=== PATIENT | female | born 1975 | race American Indian/Alaskan Native ===

== ENCOUNTER 2016-11-24 14:35 | Outpatient (CLI) | payer MEDICAID ==
--- NOTE | 2016-11-25 09:57 | Mammography Report ---
Bilateral mammogram: No previous studies available. CAD study utilized. Findings: Heterogeneous breast parenchyma bilaterally. No mass or microcalcification. Benign axilla. Impression: Benign findings. Annual followup recommended. BI-RADS CATEGORY: 2 = Benign ACR BI-RADS MAMMOGRAPHIC CODES: 0 = Needs additional imaging evaluation; 1 = Negative; 2 = Benign; 3 = Probably benign; 4 = Suspicious; 5 = Malignant; 6 = Known biopsy-proven malignancy COMMENT: 1. Dense breast tissue, i.e., adenosis, fibrocystic changes, etc., may obscure an underlying neoplasm. 2. Approximately 10% of cancers are not detected with mammography. 3. A negative mammography report should not delay biopsy if a clinically suspicious mass is present. COMMENT: Patient follow-up letters are generated in [employer].
== END 2016-11-24 14:36 | disposition home or self-care (01) ==
LOC: MAMMO 14:35
PROVIDERS: ATTEND Internal Medicine
DX: Z12.31 Encounter for screening mammogram for malignant neoplasm of breast (principal)
CPT/HCPCS: 77067; G0202

== ENCOUNTER 2019-07-02 12:20 | Observation (INO) | payer MEDICAID, OTHER ==
[2019-07-02] MEDS ORDERED: methylPREDNISolone Sod Suc 125 MG in SODIUM CHLORIDE 0.9% 100 ML IV ONE (13:19)
[2019-07-02] MEDS ORDERED: MAGNESIUM SULFATE 2 GM/50 ML BAG IV ONE (13:19)
[2019-07-02] MEDS ORDERED: SODIUM CHLORIDE 0.9% 500 ML 500 ML IV ONE (13:19)
[2019-07-02] MEDS ORDERED: diphenhydrAMINE 50 MG/ML VIAL IV ONE (13:19)
[2019-07-02] MEDS ORDERED: METOCLOPRAMIDE 10 MG/2 ML INJ IV ONE (13:19)
[2019-07-02] MEDS ORDERED: LIDOCAINE (4%) 40 MG/ML TOPICAL SOLN 50 ML BOTTLE TP ONE (13:19)
--- NOTE | 2019-07-02 13:21 | Emergency Department Report ---
ED General Adult HPI - General Chief complaint: Chest Pain Stated complaint: CHEST PAIN/HEADACHE Time Seen by Provider: 07/02/19 12:47 Source: patient, EMS ( EMS documentation not available at time of chart dictation ), RN notes reviewed Mode of arrival: Ambulatory Limitations: Physical Limitation - History of Present Illness Initial comments: This is a 43-year-old female. This patient is not known to this provider previously. She states that she is not . She indicates she does not have a local primary care doctor. She does not have a formal diagnosis of migraines that she is aware of. During the entire history and physical, I am online merchandising specialist and escorted by Ms. Carolee Kirby The patient presents to the ER with multiple complaints. Her first complaint is headache. The headache is right-sided and throbbing. It started at 10:00 in the morning. It is not described as sudden or thunderclap in nature. It did not which maximal intensity within an hour. It is not the most intense headache of her life. She had a worse headache last month. This headache is associated binocular blurry vision, and subjective feeling of unsteady gait. The patient denies DVT and pulmonary embolism risk factors. She also describes central chest wall pain and breast pain. The pain is sharp and throbbing, and increases with palpation and decreases with rest. -: Gradual, Sudden Location: head, chest Radiation: other (headache radiates back and forth, to the forehead and left- sided temporal region) Severity scale (0 -10): 8 Quality: aching, other Consistency: other (patient reports headache mostly resolved. Chest wall pain increases with palpation. It decreases with rest.) - Related Data Home Medications Medication Instructions Recorded Confirmed Last Taken Vitamin C 1,000 mg PO DAILY 07/03/19 07/03/19 07/02/19 Previous Rx's Medication Instructions Recorded Last Taken Type Propranolol [Inderal] 40 mg PO BID #60 tablet 02/13/16 07/02/19 Rx Allergies Allergy/AdvReac Type Severity Reaction Status Date / Time No Known Allergies Allergy Verified 02/12/16 23:25 ED Review of Systems ROS: Stated complaint: CHEST PAIN/HEADACHE Other details as noted in HPI Constitutional: denies: fever Eyes: vision change. denies: eye pain, eye discharge ENT: denies: congestion Respiratory: denies: wheezing Cardiovascular: chest pain. denies: syncope Gastrointestinal: nausea. denies: vomiting Genitourinary: denies: dysuria Musculoskeletal: arthralgia, myalgia, other (patient also describes nontraumatic right-sided breast wall pain) Skin: denies: lesions Neurological: headache, weakness, abnormal gait. denies: numbness, paresthesias Psychiatric: anxiety Hematological/Lymphatic: denies: easy bleeding ED Past Medical Hx - Past Medical History Previous Medical History?: Yes Hx Hypertension: Yes Hx CVA: No Hx Heart Attack/AMI: No Hx Congestive Heart Failure: No Hx Diabetes: No Hx Deep Vein Thrombosis: No Hx Pulmonary Embolism: No Hx Liver Disease: No Hx Renal Disease: No Hx of Cancer: No Hx Sickle Cell Disease: No Hx Arthritis: No Hx Headaches / Migraines: Yes Hx Seizures: No Hx Kidney Stones: No Hx Psychiatric Treatment: No Hx Asthma: No Hx COPD: No Hx Tuberculosis: No Hx Dementia: No Hx HIV: No - Surgical History Past Surgical History?: No Hx Coronary Stent: No Hx Open Heart Surgery: No Hx Pacemaker: No Hx Internal Defibrillator: No Hx Cholecystectomy: No Hx Appendectomy: No Hx Breast Surgery: No - Social History Smoking Status: Never Smoker Substance Use Type: None - Medications Home Medications: Home Medications Medication Instructions Recorded Confirmed Last Taken Type Propranolol [Inderal] 40 mg PO BID #60 tablet 02/13/16 07/03/19 07/02/19 Rx Vitamin C 1,000 mg PO DAILY 07/03/19 07/03/19 07/02/19 History ED Physical Exam - General Limitations: No Limitations General appearance: alert, anxious, in distress, obese - Head Head exam: Present: atraumatic, normocephalic - Eye Eye exam: Present: normal appearance, PERRL, EOMI, other (visual acuity intact to finger counting, color perception, reading at a close distance). Absent: nystagmus - ENT ENT exam: Present: normal exam, normal orophraynx, mucous membranes moist, normal external ear exam - Neck Neck exam: Present: normal inspection, full ROM. Absent: tenderness, meningismus - Respiratory Respiratory exam: Present: normal lung sounds bilaterally, chest wall tenderness. Absent: respiratory distress - Cardiovascular Cardiovascular Exam: Present: regular rate, normal rhythm, normal heart sounds. Absent: systolic murmur, diastolic murmur, rubs, gallop - GI/Abdominal GI/Abdominal exam: Present: soft, normal bowel sounds. Absent: distended, tenderness, guarding, rebound, rigid, pulsatile mass - Extremities Exam Extremities exam: Present: normal inspection, full ROM, other (2+ pulses noted in the bilateral upper, lower extremities. There is no long bone tenderness. Musculoskeletal compartments are soft. The pelvis is stable.). Absent: pedal edema, joint swelling, calf tenderness - Back Exam Back exam: Present: normal inspection, full ROM. Absent: tenderness, CVA tender ness (R), CVA tenderness (L), paraspinal tenderness, vertebral tenderness - Neurological Exam Neurological exam: Present: alert, oriented X3, abnormal gait (patient walks with a broad-based unsteady gait), other (there is no facial droop. The tongue is midline. Extraocular movements are intact bilaterally. Patient speaking in full complete sentences. Shoulder shrug is intact bilaterally. Hearing is grossly intact bilaterally. Visual acuity intact to finger counting and color perception at a close distance. 5/5 strength 4 extremities. Sensation intact to light touch in 4 extremities.). Absent: motor sensory deficit - Psychiatric Psychiatric exam: Present: anxious - Skin Skin exam: Present: warm, dry, intact, normal color, other (there is no skin redness, pus or streaking. There is reproducible right-sided chest wall tenderness. There is no breast redness, pus or streaking. There is no breast induration or fluctuance. Tire Specialist by Carolee Kirby). Absent: rash ED Course Vital Signs 07/02/19 07/02/19 07/02/19 12:35 12:38 12:45 Temperature 98.2 F Pulse Rate 71 72 Respiratory 16 16 Rate Blood Pressure 170/101 170/101 Blood Pressure 170/101 [Right] O2 Sat by Pulse 96 98 96 Oximetry 07/02/19 07/02/19 07/02/19 13:01 13:07 13:15 Temperature Pulse Rate 80 74 Respiratory 26 H 18 12 Rate Blood Pressure 170/101 174/104 Blood Pressure [Right] O2 Sat by Pulse 87 100 Oximetry 07/02/19 07/02/19 07/02/19 13:30 13:45 14:07 Temperature Pulse Rate 72 70 92 H Respiratory 12 18 18 Rate Blood Pressure 160/105 160/105 174/104 Blood Pressure [Right] O2 Sat by Pulse 99 100 95 Oximetry 07/02/19 07/02/19 07/02/19 14:15 14:31 14:45 Temperature Pulse Rate 76 73 73 Respiratory 19 18 18 Rate Blood Pressure 174/104 174/104 174/104 Blood Pressure [Right] O2 Sat by Pulse 100 99 98 Oximetry 07/02/19 07/02/19 07/02/19 15:03 15:15 15:30 Temperature Pulse Rate Respiratory Rate Blood Pressure 160/105 160/105 165/97 Blood Pressure [Right] O2 Sat by Pulse 96 98 98 Oximetry 07/02/19 07/02/19 07/02/19 15:45 16:00 16:16 Temperature Pulse Rate Respiratory Rate Blood Pressure 165/97 153/96 153/96 Blood Pressure [Right] O2 Sat by Pulse 98 96 97 Oximetry 07/02/19 07/02/19 07/02/19 16:30 16:45 17:00 Temperature Pulse Rate Respiratory Rate Blood Pressure 153/96 169/102 Blood Pressure [Right] O2 Sat by Pulse 95 96 95 Oximetry 07/02/19 07/02/19 07/02/19 17:15 17:30 17:45 Temperature Pulse Rate Respiratory Rate Blood Pressure 169/102 160/99 160/99 Blood Pressure [Right] O2 Sat by Pulse 99 96 99 Oximetry 07/02/19 07/02/19 07/02/19 18:00 18:11 18:21 Temperature Pulse Rate Respiratory Rate Blood Pressure 164/108 169/102 169/102 Blood Pressure [Right] O2 Sat by Pulse 95 98 97 Oximetry 07/02/19 18:30 Temperature Pulse Rate Respiratory Rate Blood Pressure 163/119 Blood Pressure [Right] O2 Sat by Pulse 92 Oximetry - Reevaluation(s) Reevaluation #1: 07/02/19 13:56 Differential diagnosis, including not limited to: Migraine, complex migraine, partial seizure, stroke, transient ischemic attack, or carditis, myocarditis, acute coronary syndrome, costochondritis Assessment and plan: 43-year-old female with multiple complaints, including headache, resolved binocular blurry visual loss, feeling unsteady gait, demonstrated on exam, also with chest pain which is reproducible. She is not tachycardic, tachypneic or hypoxic, and she is low risk by well's criteria, as well as PERC negative Her EKG is morphologically abnormal, with nonspecific ST elevation, there may be some MO depression, this may be consistent with early pericarditis. Patient at low risk for major adverse cardiac event as per the heart score. However, she does not carry a formal diagnosis of migraine or complex migraine as per her history, and therefore, atypical presentation of stroke is on the differential diagnosis. At this point in time, a prior EKG is not available for comparison. Her exam is not suggestive of a large vessel occlusion, she was evaluated by stroke neurology, Dr. Ortiz, who agreed that patient was not a TPA candidate, and also agreed that patient did not require emergent endovascular imaging. Patient not especially hypertensive, has equal pulses in the upper and lower e xtremities, this is very unlikely to be aortic disease. Admission was recommended by the neurology service for further evaluation of neurologic symptoms. Screening laboratory studies, x-ray the chest are pending at this time. Her headache will be treated supportively and symptomatically. Reevaluation #2: 07/02/19 14:[address] Taco Cruz for inpatient evaluation and management sleeping comfortably at this time and in no acute distress ED Medical Decision Making - Lab Data Result diagrams: 07/02/19 13:44 07/02/19 13:44 Vital Signs 07/02/19 07/02/19 12:38 13:07 Temperature 98.2 F Pulse Rate 71 Respiratory 16 18 Rate Blood Pressure 170/101 Blood Pressure 170/101 [Right] O2 Sat by Pulse 98 100 Oximetry - EKG Data -: EKG Interpreted by [place] EKG shows normal: sinus rhythm Rate: normal - EKG Data When compared to previous EKG there are: previous EKG unavailable 07/02/19 13:58 No prior EKG is available for comparison. The EKG shows a sinus rhythm, 74 bpm, normal axis, the QTC is within normal limits, there is borderline high left ventricular voltage, nonspecific ST elevation, abnormality noted in aVF, V3, V4, V5 and V6. There may be some MO depression. The EKG is abnormal. There is no prior for comparison. It is not a STEMI. - Radiology Data Radiology results: pending, report reviewed, image reviewed Noncontrast CT scan of the brain is negative for acute disease. Critical care attestation.: If time is entered above; I have spent that time in minutes in the direct care of this critically ill patient, excluding procedure time. ED Disposition Clinical Impression: Chest pain Migraine Qualifiers: Migraine type: unspecified Disposition: OP ADMIT IP TO THIS HOSP Is pt being admited?: Yes Does the pt Need Aspirin: Yes Condition: Stable
--- NOTE | 2019-07-02 13:43 | Cat Scan Report ---
CT head/brain wo con INDICATION / CLINICAL INFORMATION: 43 years Female; MAIN: CODE STROKE CALL [phone]. TECHNIQUE: Routine CT head without contrast. All CT scans at this location are performed using CT dos e reduction for ALARA by means of automated exposure control. COMPARISON: None. FINDINGS: BRAIN / INTRACRANIAL CONTENTS: No acute hemorrhage, mass effect, midline shift, hydrocephalus, or acu te, large territorial infarct. No chronic infarct or atrophy appreciated. No significant white matter abnormality. CRANIOCERVICAL JUNCTION: No significant abnormality. ORBITS: No significant abnormality of visualized orbits. SINUSES / MASTOIDS: No significant abnormality of the visualized paranasal sinuses or mastoid air moose ls. ADDITIONAL FINDINGS: None. IMPRESSION: 1. No focal mass, hemorrhage, hydrocephalus, or acute, large territorial infarct. This exam was performed as part of a code stroke protocol. The exam was completed on 07/02/2019 12:33 PM. The exam was reviewed at 12:[address] Calderon was notified at 12:38 PM. Signer Name: Marvin Araya MD, III Signed: 07/02/2019 1:39 PM Workstation Name: [id number]
--- NOTE | 2019-07-02 13:50 | Emergency Department Report ---
ED General Adult HPI - General Chief complaint: Chest Pain Stated complaint: CHEST PAIN/HEADACHE Time Seen by Provider: 07/02/19 12:47 Source: EMS Mode of arrival: Ambulatory Limitations: No Limitations - History of Present Illness Initial comments: [facility] Date of Service: 07/02/2019 13:27:18 Impression: Migraine Comments: 43 year old female who presents with migraine headache with aura of blurred vision. Presentation likely more related to migraine rather than stroke. Mechanism of Stroke: Not Clear Metrics: Last Known Well: 07/01/2019 23:30:00 [employer] Notification Time: 07/02/2019 13:26:18 Arrival Time: 07/02/2019 12:20:00 Stamp Time: 07/02/2019 13:27:18 Time First Login Attempt: 07/02/2019 13:31:00 Video Start Time: 07/02/2019 13:31:00 Symptoms: Migraine NIHSS Start Assessment Time: 07/02/2019 13:35:00 Patient is not a candidate for tPA. Patient was not deemed candidate for tPA thrombolytics because of Last Well Known Above 4.5 Hours. Video End Time: 07/02/2019 13:40:00 CT head showed no acute hemorrhage or acute core infarct. Advanced imaging was not obtained as the presentation was not suggestive of Large Vessel Occlusive Disease. ER Physician notified of the decision on thrombolytics management on 07/02/2019 13:42:44 Our recommendations are outlined below. Recommendations: Activate Stroke Protocol Admission/Order Set Stroke/Telemetry Floor Neuro Checks Bedside Swallow Eval DVT Prophylaxis IV Fluids, Normal Saline Head of Bed Below 30 Degrees Euglycemia and Avoid Hyperthermia (PRN Acetaminophen) Antiplatelet Therapy Recommended Dysphaghia Screen: Swallow Evaluation, Bedside Disposition: Sign Out Sign Out: Discussed with Emergency Department Provider History of Present Illness: Patient was brought by EMS for symptoms of Migraine 43 year old female who presents with unilateral throbbing headache on the right side of her head with some sensitivity to light and sound. She did not have any focal weakness or numbness or difficulty speaking. She reported that this is similar to her previous migraines except that she had blurred vision and right breast pain. CT head showed no acute hemorrhage or acute core infarct. Examination: BP(170/101), Blood Glucose(93) 1A: Level of Consciousness - Alert; keenly responsive + 0 1B: Ask Month and Age - Both Questions Right + 0 1C: Blink Eyes & Squeeze Hands - Performs Both Tasks + 0 2: Test Horizontal Extraocular Movements - Normal + 0 3: Test Visual [place] - No Visual Loss + 0 4: Test Facial Palsy (Use Grimace if Obtunded) - Normal symmetry + 0 5A: Test Left Arm Motor Drift - No Drift for 10 Seconds + 0 5B: Test Right Arm Motor Drift - No Drift for 10 Seconds + 0 6A: Test Left Leg Motor Drift - No Drift for 5 Seconds + 0 6B: Test Right Leg Motor Drift - No Drift for 5 Seconds + 0 7: Test Limb Ataxia (FNF/Heel-[place]) - No Ataxia + 0 8: Test Sensation - Normal; No sensory loss + 0 9: Test Language/Aphasia - Normal; No aphasia + 0 10: Test Dysarthria - Normal + 0 11: Test Extinction/Inattention - No abnormality + 0 NIHSS Score: 0 Patient was informed the Neurology Consult would happen via TeleHealth consult by way of interactive audio and video telecommunications and consented to receiving care in this manner. Due to the immediate potential for life-threatening deterioration due to underlying acute neurologic illness, I spent 35 minutes providing critical care. This time includes time for face to face visit via telemedicine, review of medical records, imaging studies and discussion of findings with providers, the patient and/or family. Dr Haydee Chavez [facility] Case [id number] Severity scale (0 -10): 8 - Related Data Previous Rx's Medication Instructions Recorded Last Taken Type Famotidine [Pepcid] 20 mg PO BID #30 tablet 02/13/16 Unknown Rx HYDROcodone/APAP 5-325 [[place] 1 each PO Q6HR PRN #10 tablet 02/13/16 Unknown Rx 5/325] Omeprazole [PriLOSEC] 20 mg PO QDAY #14 capsule. 02/13/16 Unknown Rx Propranolol [Inderal] 40 mg PO BID #60 tablet 02/13/16 Unknown Rx Allergies Allergy/AdvReac Type Severity Reaction Status Date / Time No Known Allergies Allergy Verified 02/12/16 23:25 ED Review of Systems ROS: Stated complaint: CHEST PAIN/HEADACHE Other details as noted in HPI ED Past Medical Hx - Past Medical History Previous Medical History?: Yes Hx Hypertension: Yes Hx CVA: No Hx Heart Attack/AMI: No Hx Congestive Heart Failure: No Hx Diabetes: No Hx Deep Vein Thrombosis: No Hx Pulmonary Embolism: No Hx Liver Disease: No Hx Renal Disease: No Hx of Cancer: No Hx Sickle Cell Disease: No Hx Arthritis: No Hx Headaches / Migraines: Yes Hx Seizures: No Hx Kidney Stones: No Hx Psychiatric Treatment: No Hx Asthma: No Hx COPD: No Hx Tuberculosis: No Hx Dementia: No Hx HIV: No - Surgical History Past Surgical History?: No Hx Coronary Stent: No Hx Open Heart Surgery: No Hx Pacemaker: No Hx Internal Defibrillator: No Hx Cholecystectomy: No Hx Appendectomy: No Hx Breast Surgery: No - Social History Smoking Status: Never Smoker Substance Use Type: None - Medications Home Medications: Home Medications Medication Instructions Recorded Confirmed Last Taken Type Famotidine [Pepcid] 20 mg PO BID #30 tablet 02/13/16 Unknown Rx HYDROcodone/APAP 5-325 [[place] 1 each PO Q6HR PRN #10 tablet 02/13/16 Unknown Rx 5/325] Omeprazole [PriLOSEC] 20 mg PO QDAY #14 capsule. 02/13/16 Unknown Rx Propranolol [Inderal] 40 mg PO BID #60 tablet 02/13/16 Unknown Rx ED Physical Exam - General Limitations: No Limitations ED Course Vital Signs 07/02/19 07/02/19 12:38 13:07 Temperature 98.2 F Pulse Rate 71 Respiratory 16 18 Rate Blood Pressure 170/101 Blood Pressure 170/101 [Right] O2 Sat by Pulse 98 100 Oximetry Critical care attestation.: If time is entered above; I have spent that time in minutes in the direct care of this critically ill patient, excluding procedure time. ED Disposition Clinical Impression: Migraine Qualifiers: Migraine type: with aura Status migrainosus presence: without status migrainosus Intractability: not intractable Qualified Code(s): G43.109 - Migraine with aura, not intractable, without status migrainosus Disposition: DC-09 OP ADMIT IP TO THIS HOSP Is pt being admited?: Yes Does the pt Need Aspirin: No Condition: Stable
[2019-07-02] MEDS ORDERED: methylPREDNISolone Sod Succinate 125 MG/2 ML INJ ONE (13:57)
[2019-07-02] MEDS ORDERED: methylPREDNISolone Sod Succinate 125 MG/2 ML INJ IV ONE (14:00)
[2019-07-02 14:29] LABS: Mean Corpuscular HGB Conc 30 % (30-34); Mean Corpuscular Volume 87 fl (79-97); Platelet Count 322 K/mm3 (140-440); Red Blood Count 4.44 M/mm3 (3.65-5.03); Red Cell Distribution Width 18.2 % (13.2-15.2)
[2019-07-02 14:33] LABS: Hematocrit 38.6 % (30.3-42.9); Hemoglobin 11.4 gm/dl (10.1-14.3)
[2019-07-02 14:37] LABS: INR 1.01 (0.87-1.13)
[2019-07-02 14:37] LABS: Bilirubin,Urine NEG (Negative); Blood,Urine LG (Negative); Color,Urine Colorless (Yellow); Protein,Urine <15 mg/dL mg/dL (Negative); Urobilinogen,Urine < 2.0 mg/dL (<2.0); WBC,Urine < 1.0 /HPF (0.0-6.0)
[2019-07-02 14:38] LABS: Partial Thromboplastin Time 30.9 Sec. (24.2-36.6); Thrombin Time 15.4 Sec. (15.1-19.6)
[2019-07-02 14:40] LABS: Creatine Kinase MB 1.1 ng/mL (0.0-4.0)
[2019-07-02 14:41] LABS: BUN/Creatinine Ratio 23; Blood Urea Nitrogen 14 mg/dL (7-17); Calcium 9.9 mg/dL (8.4-10.2)
[2019-07-02 14:42] LABS: Alanine Aminotransferase 13 units/L (7-56); Albumin 4.4 g/dL (3.9-5); Hemolysis Index 15
[2019-07-02] MEDS ORDERED: ASPIRIN 81 MG TAB CHEW PO ONE (14:50)
--- NOTE | 2019-07-02 15:38 | History and Physical Report ---
History of Present Illness Chief complaint: My chest hurts, I have a headache History of present illness: 43 YO Female with Obesity, Migraine Headache, HTN, GERD presents to ED for evaluation. Pt states that she experienced a sudden onset of Right sided headache followed by blurred vision, feeling like she cannot walk straight. Pt states that pain in her head is 8/10, intense, constant, worsened with looking into a bright light, and has lasted over the past several hours. Pt also reports chest pain. Pt states that pain is 5/10, sharp, throbbing in nature, intermittent, lasted for several minutes, worsened with exertion, relieved with nitro tablet, as well as with rest. EMS notified, and upon arrival the patient was found to be in distress and transported to [facility]. Pt seen and evaluated in ED and found to have Angina, as well as symptoms consistent with Migraine Headache. Pt placed in observation status and admitted to medical floor. Pt denies fever, chills, palpitations, productive cough, skin rash, prolonged travel/immobility, unilateral leg swelling, calf pain, individual/family history of DVT/PE/Blee ding/Blood Clotting Disorders. Past History Past Medical History: other (see hpi) Past Surgical History: No surgical history, Other (reviewed) Social history: single. denies: smoking, alcohol abuse, prescription drug abuse Family history: diabetes, hypertension Medications and Allergies Allergies Allergy/AdvReac Type Severity Reaction Status Date / Time No Known Allergies Allergy Verified 02/12/16 23:25 Home Medications Medication Instructions Recorded Confirmed Last Taken Type Famotidine [Pepcid] 20 mg PO BID #30 tablet 02/13/16 Unknown Rx HYDROcodone/APAP 5-325 [Graff 1 each PO Q6HR PRN #10 tablet 02/13/16 Unknown Rx 5/325] Omeprazole [PriLOSEC] 20 mg PO QDAY #14 capsule. 02/13/16 Unknown Rx Propranolol [Inderal] 40 mg PO BID #60 tablet 02/13/16 Unknown Rx Review of Systems Constitutional: no weight loss, no weight gain, no fever, no chills Eyes: bilateral: blurred vision Ears, nose, mouth and throat: no ear pain, no ear discharge, no tinnitis, no decreased hearing, no nose pain Breasts: no change in shape, no swelling, no mass Cardiovascular: chest pain, no palpitations, no rapid/irregular heart beat, no edema Respiratory: no cough, no cough with sputum, no excessive sputum, no hemoptysis Gastrointestinal: no nausea, no vomiting, no diarrhea, no constipation Genitourinary Female: no pelvic pain, no flank pain, no menorrhagia, no dysuria, no urinary frequency Rectal: no pain, no incontinence, no bleeding Musculoskeletal: no neck stiffness, no neck pain, no shooting arm pain, no arm numbness/tingling, no low back pain, no shooting leg pain Integumentary: no rash, no pruritis, no redness, no sores, no wounds Neurological: headaches, migraines, no transient paralysis, no paralysis, no weakness, no parathesias, no numbness, no tingling, no seizures Psychiatric: no anxiety, no memory loss, no change in sleep habits, no sleep disturbances, no insomnia, no change in appetite, no change in libido Endocrine: no cold intolerance, no heat intolerance, no polyphagia, no polydipsia, no polyuria, no nocturia Hematologic/Lymphatic: no easy bruising, no easy bleeding, no lymphedema Allergic/Immunologic: no urticaria, no wheezing, no persistent infections, no anaphylaxis Exam - Constitutional Vitals: Temp Pulse Resp BP Pulse Ox 98.2 F 76 19 174/104 100 07/02/19 12:38 07/02/19 14:15 07/02/19 14:15 07/02/19 14:15 07/02/19 14:15 General appearance: Present: mild distress, obese - EENT Eyes: Present: PERRL ENT: hearing intact, clear oral mucosa - Neck Neck: Present: supple, normal ROM - Respiratory Respiratory effort: normal Respiratory: bilateral: CTA - Cardiovascular Heart Sounds: Present: S1 & S2. Absent: rub, click - Extremities Extremities: pulses symmetrical, No edema Peripheral Pulses: within normal limits - Abdominal General gastrointestinal: Present: soft, non-tender, non-distended, normal bowel sounds Female genitourinary: Present: normal - Integumentary Integumentary: Present: clear, warm, dry - Musculoskeletal Musculoskeletal: gait normal, strength equal bilaterally - Psychiatric Psychiatric: appropriate mood/affect, intact judgment & insight - Neurologic Neurologic: CNII-XII intact, moves all extremities Results - Labs CBC & Chem 7: 07/02/19 13:44 07/02/19 13:44 Labs: Abnormal lab results 07/02/19 07/02/19 07/02/19 Range/Units 13:44 13:44 13:44 MCH 26 L (28-32) pg RDW 18.2 H (13.2-15.2) % Carbon Dioxide 21 L (22-30) mmol/L Creatinine 0.6 L (0.7-1.2) mg/dL Urine pH (5.0-7.0) Salicylates 0.8 L (2.8-20.0) mg/dL Acetaminophen (10.0-30.0) ug/mL 07/02/19 07/02/19 Range/Units 13:44 14:18 MCH (28-32) pg RDW (13.2-15.2) % Carbon Dioxide (22-30) mmol/L Creatinine (0.7-1.2) mg/dL Urine pH 8.0 H (5.0-7.0) Salicylates (2.8-20.0) mg/dL Acetaminophen < 5.0 L (10.0-30.0) ug/mL Assessment and Plan - Patient Problems (1) Angina at rest Current Visit: Yes Status: Acute Plan to address problem: Admit to medical floor, serial cardiac enzymes, ekg, telemetry, Echo, PPI therapy, BNP, D dimer,morphine, supplemental oxygen, nitro, aspirin (2) Migraine headache Current Visit: Yes Status: Acute Qualifiers: Migraine type: unspecified Plan to address problem: Fioricet, pain control, supportive care. (3) Obesity (BMI 30.0-34.9) Current Visit: Yes Status: Acute Plan to address problem: Balanced diet, increased physical activity at discharge, supportive care. (4) HTN (hypertension) Current Visit: Yes Status: Acute Qualifiers: Hypertension type: essential hypertension Qualified Code(s): I10 - Essential (primary) hypertension Plan to address problem: monitor bp q shift, supportive care. (5) GERD (gastroesophageal reflux disease) Current Visit: Yes Status: Acute Qualifiers: Esophagitis presence: without esophagitis Qualified Code(s): K21.9 - Gastro -esophageal reflux disease without esophagitis Plan to address problem: PPI therapy, supportive care. (6) DVT prophylaxis Current Visit: Yes Status: Acute Plan to address problem: SCD to BLE while in bed,PT ambulatory
[2019-07-02] MEDS ORDERED: HYDROcodone/ACETAMINOPHEN 5-325 MG TAB PO PRN (15:39)
[2019-07-02] MEDS ORDERED: ACETAMINOPHEN 325 MG TAB PO PRN (15:40)
[2019-07-02] MEDS ORDERED: ONDANSETRON 4 MG/2 ML INJ IV PRN (15:40)
[2019-07-02] MEDS ORDERED: NITROGLYCERIN 0.4 MG TAB SUBL SL PRN (15:43)
[2019-07-02 15:44] LABS: Total Cells Counted 100
[2019-07-02 15:45] LABS: Eosinophils % (Manual) 0 % (0.0-4.3); Hypochromasia 1+
[2019-07-02 16:11] LABS: Chol/HDL Ratio 3.11 %
[2019-07-02 16:17] LABS: Free T4 (Free Thyroxine) 0.98 ng/dL (0.76-1.46)
--- NOTE | 2019-07-02 16:23 | XRay Report ---
CHEST 1 VIEW INDICATION / CLINICAL INFORMATION: chest wall pain upt. COMPARISON: None available. FINDINGS: SUPPORT DEVICES: None. HEART / MEDIASTINUM: No significant abnormality. LUNGS / PLEURA: No significant pulmonary or pleural abnormality.. No pneumothorax. ADDITIONAL FINDINGS: No significant additional findings. IMPRESSION: 1. No acute findings. Signer Name: Bird Rand MD Signed: 07/02/2019 4:18 PM Workstation Name: [id number]
[2019-07-02] MEDS ORDERED: BUTALB/ACETAMINOPHEN/CAFFEINE TAB PO PRN (17:44)
[2019-07-02] MEDS ORDERED: hydrALAZINE 20 MG/1 ML INJ IV ONE (20:56)
[2019-07-02] MEDS: PANTOPRAZOLE 40 MG TAB PO SCH (21:19)
[2019-07-02] MEDS ORDERED: FAMOTIDINE 20 MG TAB PO SCH (22:00)
[2019-07-02] MEDS: PROPRANOLOL 40 MG TAB PO SCH (22:40)
[2019-07-03] MEDS: PANTOPRAZOLE 40 MG TAB PO SCH (09:59)
[2019-07-03] MEDS: PROPRANOLOL 40 MG TAB PO SCH (09:59)
[2019-07-03] MEDS ORDERED: NON-FORMULARY EACH (Omeprazole [Prilosec] 20 MG) PO SCH (10:00)
[2019-07-03] MEDS ORDERED: PANTOPRAZOLE 20 MG TAB PO SCH (10:00)
--- NOTE | 2019-07-03 12:44 | Magnetic Resonance Report ---
MRI BRAIN WITHOUT CONTRAST INDICATION / CLINICAL INFORMATION: Headache, unsteady gait. TECHNIQUE: Multiplanar, multisequence MR images of the brain were obtained. COMPARISON: CT head dated 07/02/2018 FINDINGS: BRAIN / INTRACRANIAL CONTENTS: No acute ischemia, acute hemorrhage, mass effect, midline shift, or hy drocephalus. No chronic infarct or atrophy. No significant white matter abnormality. CRANIOCERVICAL JUNCTION: No significant abnormality. VASCULAR FLOW-VOIDS: No significant abnormality. ORBITS: No significant abnormality of visualized orbits. SINUSES / MASTOIDS: No significant abnormality of visualized sinuses and mastoid air cells. ADDITIONAL FINDINGS: None. IMPRESSION: Normal MR brain. MRA HEAD WITHOUT CONTRAST HISTORY: Headache, unsteady gait COMPARISON: None. TECHNIQUE: Routine MRA of the head is performed. 3-D/MIP reformats postprocessed. CONTRAST: None. FINDINGS: Intracranial vertebral arteries: No significant abnormality. Basilar artery: No significant abnormality. Posterior cerebral arteries: No significant abnormality. Intracranial internal carotid arteries: No significant abnormality. Anterior cerebral arteries: No significant abnormality. Middle cerebral arteries: No significant abnormality. Additional findings: None. IMPRESSION: Normal MRA head. Signer Name: Song Alexander Jr, MD Signed: 07/03/2019 12:39 PM Workstation Name: [id number]
--- NOTE | 2019-07-03 15:41 | Progress Note ---
Hospitalist Physical - Constitutional Vitals: Temp Pulse Resp BP Pulse Ox 98.0 F 67 18 158/92 98 07/03/19 06:12 07/03/19 09:59 07/03/19 06:12 07/03/19 09:59 07/03/19 06:12 General appearance: Present: mild distress, obese Results - Labs CBC & Chem 7: 07/02/19 13:44 07/02/19 13:44 Labs: Laboratory Last Values WBC 6.4 K/mm3 (4.5-11.0) 07/02/19 13:44 RBC 4.44 M/mm3 (3.65-5.03) 07/02/19 13:44 Hgb 11.4 gm/dl (10.1-14.3) 07/02/19 13:44 Hct 38.6 % (30.3-42.9) 07/02/19 13:44 MCV 87 fl (79-97) 07/02/19 13:44 MCH 26 pg (28-32) L 07/02/19 13:44 MCHC 30 % (30-34) 07/02/19 13:44 RDW 18.2 % (13.2-15.2) H 07/02/19 13:44 Plt Count 322 K/mm3 (140-440) 07/02/19 13:44 Lymph % (Auto) Animal Laboratory Technician 07/02/19 13:44 Johnson % (Auto) Animal Laboratory Technician 07/02/19 13:44 Eos % (Auto) Animal Laboratory Technician 07/02/19 13:44 Baso % (Auto) Animal Laboratory Technician 07/02/19 13:44 Lymph # Animal Laboratory Technician 07/02/19 13:44 Johnson # Animal Laboratory Technician 07/02/19 13:44 Eos # Animal Laboratory Technician 07/02/19 13:44 Baso # Animal Laboratory Technician 07/02/19 13:44 Add Manual Diff Complete 07/02/19 13:44 Total Counted 100 07/02/19 13:44 Seg Neutrophils % Animal Laboratory Technician 07/02/19 13:44 Seg Neuts % (Manual) 67.0 % (40.0-70.0) 07/02/19 13:44 Band Neutrophils % 0 % 07/02/19 13:44 Lymphocytes % (Manual) 22.0 % (13.4-35.0) 07/02/19 13:44 Reactive Lymphs % (Man) 0 % 07/02/19 13:44 Monocytes % (Manual) 10.0 % (0.0-7.3) H 07/02/19 13:44 Eosinophils % (Manual) 0 % (0.0-4.3) 07/02/19 13:44 Basophils % (Manual) 1.0 % (0.0-1.8) 07/02/19 13:44 Metamyelocytes % 0 % 07/02/19 13:44 Myelocytes % 0 % 07/02/19 13:44 Promyelocytes % 0 % 07/02/19 13:44 Blast Cells % 0 % 07/02/19 13:44 Nucleated RBC % Not Reportable 07/02/19 13:44 Seg Neutrophils # Animal Laboratory Technician 07/02/19 13:44 Seg Neutrophils # Man 4.3 K/mm3 (1.8-7.7) 07/02/19 13:44 Band Neutrophils # 0.0 K/mm3 07/02/19 13:44 Lymphocytes # (Manual) 1.4 K/mm3 (1.2-5.4) 07/02/19 13:44 Abs React Lymphs (Man) 0.0 K/mm3 07/02/19 13:44 Monocytes # (Manual) 0.6 K/mm3 (0.0-0.8) 07/02/19 13:44 Eosinophils # (Manual) 0.0 K/mm3 (0.0-0.4) 07/02/19 13:44 Basophils # (Manual) 0.1 K/mm3 (0.0-0.1) 07/02/19 13:44 Metamyelocytes # 0.0 K/mm3 07/02/19 13:44 Myelocytes # 0.0 K/mm3 07/02/19 13:44 Promyelocytes # 0.0 K/mm3 07/02/19 13:44 Blast Cells # 0.0 K/mm3 07/02/19 13:44 WBC Morphology Not Reportable 07/02/19 13:44 Hypersegmented Neuts Not Reportable 07/02/19 13:44 Hyposegmented Neuts Not Reportable 07/02/19 13:44 Hypogranular Neuts Not Reportable 07/02/19 13:44 Smudge Cells Not Reportable 07/02/19 13:44 Toxic Granulation Not Reportable 07/02/19 13:44 Toxic Vacuolation Not Reportable 07/02/19 13:44 Dohle Bodies Not Reportable 07/02/19 13:44 Pelger-Huet Anomaly Not Reportable 07/02/19 13:44 Uri Rods Not Reportable 07/02/19 13:44 Platelet Estimate Not Reportable 07/02/19 13:44 Clumped Platelets Not Reportable 07/02/19 13:44 Plt Clumps, EDTA Not Reportable 07/02/19 13:44 Large Platelets Not Reportable 07/02/19 13:44 Giant Platelets Not Reportable 07/02/19 13:44 Platelet Satelliting Not Reportable 07/02/19 13:44 Plt Morphology Comment Not Reportable 07/02/19 13:44 RBC Morphology Not Reportable 07/02/19 13:44 Dimorphic RBCs Not Reportable 07/02/19 13:44 Polychromasia Not Reportable 07/02/19 13:44 Hypochromasia 1+ 07/02/19 13:44 Poikilocytosis Not Reportable 07/02/19 13:44 Anisocytosis Not Reportable 07/02/19 13:44 Microcytosis Not Reportable 07/02/19 13:44 Macrocytosis Not Reportable 07/02/19 13:44 Spherocytes Not Reportable 07/02/19 13:44 Pappenheimer Bodies Not Reportable 07/02/19 13:44 Sickle Cells Not Reportable 07/02/19 13:44 Target Cells Not Reportable 07/02/19 13:44 Tear Drop Cells Not Reportable 07/02/19 13:44 Ovalocytes Not Reportable 07/02/19 13:44 Helmet Cells Not Reportable 07/02/19 13:44 [place]-Mutual Bodies Not Reportable 07/02/19 13:44 [place]iota Rings Not Reportable 07/02/19 13:44 [place] Cells Not Reportable 07/02/19 13:44 Bite Cells Not Reportable 07/02/19 13:44 Crenated Cell Not Reportable 07/02/19 13:44 Elliptocytes Not Reportable 07/02/19 13:44 Acanthocytes (Spur) Not Reportable 07/02/19 13:44 Rouleaux Not Reportable 07/02/19 13:44 Hemoglobin C Crystals Not Reportable 07/02/19 13:44 Schistocytes Not Reportable 07/02/19 13:44 Malaria parasites Not Reportable 07/02/19 13:44 Eduardo Bodies Not Reportable 07/02/19 13:44 Hem Pathologist Commnt No 07/02/19 13:44 PT 13.2 Sec. (12.2-14.9) 07/02/19 13:44 INR 1.01 (0.87-1.13) 07/02/19 13:44 APTT 30.9 Sec. (24.2-36.6) 07/02/19 13:44 Thrombin Time 15.4 Sec. (15.1-19.6) 07/02/19 13:44 D-Dimer 169.28 ng/mlDDU (0-234) 07/02/19 Unknown Sodium 141 mmol/L (137-145) 07/02/19 13:44 Potassium 4.1 mmol/L (3.6-5.0) 07/02/19 13:44 Chloride 101.9 mmol/L (98-107) 07/02/19 13:44 Carbon Dioxide 21 mmol/L (22-30) L 07/02/19 13:44 Anion Gap 22 mmol/L 07/02/19 13:44 BUN 14 mg/dL (7-17) 07/02/19 13:44 Creatinine 0.6 mg/dL (0.7-1.2) L 07/02/19 13:44 Estimated GFR > 60 ml/min 07/02/19 13:44 BUN/Creatinine Ratio 23 % 07/02/19 13:44 Glucose 82 mg/dL (65-100) 07/02/19 13:44 Calcium 9.9 mg/dL (8.4-10.2) 07/02/19 13:44 Magnesium 2.30 mg/dL (1.7-2.3) 07/02/19 13:44 Total Bilirubin 0.40 mg/dL (0.1-1.2) 07/02/19 13:44 AST 15 units/L (5-40) 07/02/19 13:44 ALT 13 units/L (7-56) 07/02/19 13:44 Alkaline Phosphatase 70 units/L (35-129) 07/02/19 13:44 Total Creatine Kinase 61 units/L (30-135) 07/02/19 13:44 CK-MB (CK-2) 1.1 ng/mL (0.0-4.0) 07/02/19 13:44 CK-MB (CK-2) Rel Index 1.8 (0-4) 07/02/19 13:44 Troponin T < 0.010 ng/mL (0.00-0.029) 07/02/19 21:01 NT-Pro-B Natriuret Pep 44.45 pg/mL (0-450) 07/02/19 Unknown Total Protein 7.7 g/dL (6.3-8.2) 07/02/19 13:44 Albumin 4.4 g/dL (3.9-5) 07/02/19 13:44 Albumin/Globulin Ratio 1.3 % 07/02/19 13:44 Triglycerides 69 mg/dL (2-149) 07/02/19 Unknown Cholesterol 168 mg/dL (50-199) 07/02/19 Unknown LDL Cholesterol Direct 107 mg/dL (50-130) 07/02/19 Unknown HDL Cholesterol 54 mg/dL (40-59) 07/02/19 Unknown Cholesterol/HDL Ratio 3.11 % 07/02/19 Unknown TSH 1.730 mlU/mL (0.270-4.200) 07/02/19 Unknown Free T4 0.98 ng/dL (0.76-1.46) 07/02/19 Unknown HCG, Quant 0.960 mIU/mL (0-4) 07/02/19 13:44 Urine Color Colorless (Yellow) 07/02/19 14:18 Urine Turbidity Clear (Clear) 07/02/19 14:18 Urine pH 8.0 (5.0-7.0) H 07/02/19 14:18 Ur Specific [place] 1.003 (1.003-1.030) 07/02/19 14:18 Urine Protein <15 mg/dl mg/dL (Negative) 07/02/19 14:18 Urine Glucose (UA) Neg mg/dL (Negative) 07/02/19 14:18 Urine Ketones Neg mg/dL (Negative) 07/02/19 14:18 Urine Blood Lg (Negative) 07/02/19 14:18 Urine Nitrite Neg (Negative) 07/02/19 14:18 Urine Bilirubin Neg (Negative) 07/02/19 14:18 Urine Urobilinogen < 2.0 mg/dL (<2.0) 07/02/19 14:18 Ur Leukocyte Esterase Neg (Negative) 07/02/19 14:18 Urine WBC (Auto) < 1.0 /HPF (0.0-6.0) 07/02/19 14:18 Urine RBC (Auto) 72.0 /HPF (0.0-6.0) 07/02/19 14:18 U Epithel Cells (Auto) 1.0 /HPF (0-13.0) 07/02/19 14:18 Salicylates 0.8 mg/dL (2.8-20.0) L 07/02/19 13:44 Acetaminophen < 5.0 ug/mL (10.0-30.0) L 07/02/19 13:44 Plasma/Serum Alcohol < 0.01 % (0-0.07) 07/02/19 13:44 Active Medications - Current Medications Current Medications: Generic Name Dose Route Start Last Admin Trade Name Freq PRN Reason Stop Dose Admin Acetaminophen 650 mg 07/02/19 15:40 Tylenol PO Q4H PRN Pain MILD(1-3)/Fever >100.5/ Acetaminophen/Butalbital/Caffeine 1 tab 07/02/19 17:44 Fioricet PO Q4H PRN Headache Acetaminophen/Hydrocodone Bitart 1 each 07/02/19 15:39 [place] 5/325 PO Q6HR PRN Pain, Moderate (4-6) Atorvastatin Calcium 40 mg 07/02/19 22:00 07/02/19 21:19 Lipitor PO 40 mg QHS ASHU Administration Nitroglycerin 0.4 mg 07/02/19 15:43 Nitrostat SL Q5M PRN Chest Pain Ondansetron HCl 4 mg 07/02/19 15:40 Zofran IV Q8H PRN Nausea And Vomiting Pantoprazole Sodium 40 mg 07/02/19 17:47 07/03/19 09:59 Protonix PO 40 mg BID ASHU Administration Propranolol HCl 40 mg 07/02/19 22:00 07/03/19 09:59 Inderal PO 40 mg BID ASHU Administration Sodium Chloride 10 ml 07/02/19 22:00 07/03/19 09:58 Sodium Chloride Flush Syringe 10 Ml IV 10 ml BID ASHU Administration Sodium Chloride 10 ml 07/02/19 15:40 Sodium Chloride Flush Syringe 10 Ml IV PRN PRN LINE FLUSH Sodium Chloride 10 ml 07/02/19 15:43 Sodium Chloride Flush Syringe 10 Ml IV PRN PRN LINE FLUSH
--- NOTE | 2019-07-03 17:13 | Discharge Summary ---
Providers - Providers Date of Admission: 07/02/19 15:40 Date of discharge: 07/03/19 Attending physician: TAHMINA MELENDREZ 07/02/19 Consult to Cardiac Rehabilitation [CONS] Routine Reason For Exam: Phase I 07/03/19 09:58 Consult to Physician [CONS] Routine Comment: Consulting Provider: LYNN CASTELLANOS Physician Instructions: Reason For Exam: headache, unsteady gait Primary care physician: BINGO MANAGER Hospitalization Condition: Fair Hospital course: patient is 43 YO Female with Obesity, Migraine Headache, HTN, GERD presents to ED for evaluation. Pt states that she experienced a sudden onset of Right sided headache followed by blurred vision, feeling like she cannot walk straight. Pt stated that pain in her head is 8/10, intense, constant, worsened with looking into a bright light, and has lasted over the several hours. Pt also reports chest pain. Pt states that pain is 5/10, sharp, throbbing in nature, intermittent, lasted for several minutes, worsened with exertion, relieved with nitro tablet, as well as with rest. EMS notified, and upon arrival the patient was found to be in distress and transported to [facility]. Pt seen and evaluated in ED and found to have BP 170/101. CYT head unremarkable. Patient was placed in observation status. She was seen by neurology. He states symptoms due to hypertensive urgency. BP improved on medications from 170/101 to 134/87, and she was discharged home. Stroke ruled out. Disposition: - TO HOME OR SELFCARE - Discharge Diagnoses (1) Hypertensive urgency Status: Acute (2) Chest pain Status: Acute Comment: due to GERD (3) GERD (gastroesophageal reflux disease) Status: Acute Qualifiers: Esophagitis presence: without esophagitis Qualified Code(s): K21.9 - Gastro-esophageal reflux disease without esophagitis (4) HTN (hypertension) Status: Acute Qualifiers: Hypertension type: essential hypertension Qualified Code(s): I10 - Essential (primary) hypertension Core Measure Documentation - Palliative Care Palliative Care/ Comfort Measures: Not Applicable - Core Measures Any of the following diagnoses?: none Exam - Constitutional Vitals: Temp Pulse Resp BP Pulse Ox 98.0 F 67 18 158/92 98 07/03/19 06:12 07/03/19 09:59 07/03/19 06:12 07/03/19 09:59 07/03/19 06:12 Plan Activity: advance as tolerated Diet: low fat, low cholesterol, low salt Plan of Treatment: 1.Follow up with PCP in 1 week. 2.Follow up with Neurologist in 1 week Follow up with: PRIMARY CARE, [Primary Care Provider] - 3-5 Days Prescriptions: Propranolol [Inderal] 40 mg PO BID #60 tablet
[2019-07-03 17:17] VITALS: BP 134/87
[2019-07-03] MEDS ORDERED: ASPIRIN 325 MG TAB PO SCH (18:00)
--- NOTE | 2019-07-03 19:08 | Consultation ---
History of Present Illness Consult date: 07/03/19 Reason for Consult: Headache, blurry vision, dizziness Chief complaint: Headache, blurry vision, dizziness History of present illness: Patient is a 43-year-old woman with a history of hypertension. She presented yesterday with complaints of headache, blurry vision, and dizziness. Symptoms and reportedly began since yesterday morning. Patient states that headache was about 8 out of 10, noted on the right side of the face, pulsating/throbbing, associated with mild photophobia and phonophobia. Headache improved with Urised. The patient states that she rarely gets migraines or headaches similar to this one. She reports that she has not been compliant with her antihypertensive medications over the past week, and does not take it regularly otherwise. She notes that she gets headaches usually when she is noncompliant with her antihypertensive medications. She also notes that when she is compliant, she does not have headaches. In regards to headaches, she states that when she is not taking her medication for hypertension, she has about 1-2 frontal headaches per week, which is not noted when she takes her medication. She has had a similar headache in the past, about 3-4 years ago, and at that time she was also noncompliant with medication. Past History Past Medical History: hypertension Past Surgical History: No surgical history, Other (reviewed) Social history: single, lives with family. denies: smoking, alcohol abuse, prescription drug abuse Family history: diabetes, hypertension Medications and Allergies Allergies Allergy/AdvReac Type Severity Reaction Status Date / Time No Known Allergies Allergy Verified 02/12/16 23:25 Home Medications Medication Instructions Recorded Confirmed Last Taken Type Propranolol [Inderal] 40 mg PO BID #60 tablet 07/03/19 Unknown Rx Vitamin C 1,000 mg PO DAILY 07/03/19 07/03/19 07/02/19 History Active Meds: Active Medications Acetaminophen (Tylenol) 650 mg PO Q4H PRN PRN Reason: Pain MILD(1-3)/Fever >100.5/ Acetaminophen/Butalbital/Caffeine (Fioricet) 1 tab PO Q4H PRN PRN Reason: Headache Acetaminophen/Hydrocodone Bitart (Streetman 5/325) 1 each PO Q6HR PRN PRN Reason: Pain, Moderate (4-6) Aspirin (Aspirin) 325 mg PO QDAY ASHU Atorvastatin Calcium (Lipitor) 40 mg PO QHS [facility] Last Admin: 07/02/19 21:19 Dose: 40 mg Documented by: Nitroglycerin (Nitrostat) 0.4 mg SL Q5M PRN PRN Reason: Chest Pain Ondansetron HCl (Zofran) 4 mg IV Q8H PRN PRN Reason: Nausea And Vomiting Pantoprazole Sodium (Protonix) 40 mg PO BID [facility] Last Admin: 07/03/19 09:59 Dose: 40 mg Documented by: Propranolol HCl (Inderal) 40 mg PO BID [facility] Last Admin: 07/03/19 09:59 Dose: 40 mg Documented by: Sodium Chloride (Sodium Chloride Flush Syringe 10 Ml) 10 ml IV BID [facility] Last Admin: 07/03/19 09:58 Dose: 10 ml Documented by: Sodium Chloride (Sodium Chloride Flush Syringe 10 Ml) 10 ml IV PRN PRN PRN Reason: LINE FLUSH Sodium Chloride (Sodium Chloride Flush Syringe 10 Ml) 10 ml IV PRN PRN PRN Reason: LINE FLUSH Review of Systems All systems: negative Neurological: headaches, other (dizziness, blurry vision) Physical Examination - Vital Signs Vital Signs: Vital Signs Pulse Ox 96 07/02/19 12:35 - Physical Exam Narrative exam: Patient is alert, awake, oriented x4. Follows complex commands. PERRL, EOMI, VFF, no facial weakness noted, tongue midline, b/l intact to LT. 5/5 strength in all extremities. b/l intact to LT. B/l intact to FTN and HTS. 2+ reflexes throughout. No dysarthria or aphasia noted. - Constitutional General appearance: comfortable - EENT EENT: Present: ATNC, PERRL, mucous membranes moist, hearing intact, vision intact - Respiratory Respiratory: Present: lungs clear, normal breath sounds - Cardiovascular Cardiovascular: Present: regular rate, normal S1, normal S2 Extremities: Present: no clubbing, cyanosis, no inflammation - Gastrointestinal Gastrointestinal: Present: normoactive bowel sounds, soft, non-tender - Integumentary Integumentary: Present: normal - Musculoskeletal Musculoskeletal: Present: no fluid collection, no pain - Psychiatric Psychiatric: Present: mood/affect appropriate Results - Laboratory Findings CBC and BMP: 07/02/19 13:44 07/02/19 13:44 Abnormal Lab Findings: Abnormal Labs 11/07/02/19 07/02/19 13:44 13:44 13:44 MCH 26 L RDW 18.2 H Monocytes % (Manual) 10.0 H Carbon Dioxide 21 L Creatinine 0.6 L Urine pH Salicylates 0.8 L Acetaminophen 07/02/19 07/02/19 13:44 14:18 MCH RDW Monocytes % (Manual) Carbon Dioxide Creatinine Urine pH 8.0 H Salicylates Acetaminophen < 5.0 L Assessment and Plan Patient is a 43-year-old woman with a history of hypertension, who p/w GONCALVES, blurry vision, and dizziness. According the patient's clinical findings, it is likely that patient has hypertensive urgency, causing her GONCALVES. In support of this diagnosis, the patient has been noncompliant with her antihypertensive medications, she was noted to have elevated BP on admission. She states that she has had GONCALVES in the past when non-compliant with HTN meds, and has noted improvement in GONCALVES when she is compliant. Further, GONCALVES has now improved with decrease in BP since admission. Plan: 1. Headache in setting of hypertensive urgency - Headache now resolved with improvement in BP - Recommended for patient to remain compliant with HTN meds - MRI brain and MRA head unremarkable - Discussed with patient, and she felt that she would like to first try to be more compliant with HTN meds prior to starting any other meds for headache prophylaxis. - Echo: Ef 55-60%, LA normal size, bubble study negative - Ok for patient to be d/c home with plan to follow up with neurology as outpatient in 3-4 weeks. - Discussed plan of care with patient and primary team. Thank you for allowing me to take part in the care of this patient. Julius Mcneal MD Neurology
== END 2019-07-03 22:00 | disposition home or self-care (01) ==
LOC: ED 12:20 → 3A 15:40
PROVIDERS: ADMIT Internal Medicine; ATTEND Internal Medicine
DX: G43.909 Migraine, unspecified, not intractable, without status migrainosus (principal); I20.9 Angina pectoris, unspecified; I10 Essential (primary) hypertension; K21.9 Gastro-esophageal reflux disease without esophagitis; R42 Dizziness and giddiness; E66.9 Obesity, unspecified; Z68.36 Body mass index [BMI] 36.0-36.9, adult
CPT/HCPCS: 36415; 70450; 70544; 70551; 71045; 80053; 80061; 81001; 82550; 82553; 83735; 83880; 84439; 84443; 84484; 84702; 85007; 85025; 85379; 85610; 85670; 85730; 93005; 93010; 93306; 96365; 96375; 99284; A9270; G0378; J0360; J1200; J2765; J2930; J3475; J7040; 80320; 96361; G0480